=== PATIENT | female | born 1970 | race Caucasian/White ===

== ENCOUNTER 2018-06-28 11:17 | Emergency (ER) | payer SELFPAY ==
[2018-06-28 11:40] VITALS: BP 142/83; BMI 36.6
--- NOTE | 2018-06-28 11:51 | PDOC ---
History of Present Illness - General Chief Complaint: Respiratory Stated Complaint: COLD SYMPTOMS Time Seen by Provider: 06/28/18 11:51 History Source: Patient, Parent(s) Exam Limitations: No Limitations - History of Present Illness Initial Comments: 06/28/18 12:28 48 yo F w/ no sig PMHx comes in c/o 2 days of generalized bodyaches, sore throat , fever/chills, malaise. No known sick contacts, no recent travel, no cough, no runny nose, no sneezing, no abdominal pain, no NVD, (+)Decrease in appetite, no decrease in urination, no rash, no neck pain, no neck stiffness, no burning/ pain on urination Past History - Past Medical History Allergies/Adverse Reactions: Allergies Allergy/AdvReac Type Severity Reaction Status Date / Time No Known Allergies Allergy Verified 06/28/18 11:39 Home Medications: Ambulatory Orders Amoxicillin - [Amoxicillin 500mg Capsule -] 500 mg PO BID 10 Days #20 capsule Ibuprofen [Motrin -] 600 mg PO TID 3 Days #18 tablet 06/28/18 COPD: No - Suicide/Smoking/Psychosocial Hx Smoking History: Never smoked Review of Systems - Review of Systems Able to Perform ROS?: Yes Constitutional: Yes: Chills, Fever, Malaise. No: Night Sweats HEENTM: Yes: Throat Pain. No: Eye Pain, Recent change in vision Respiratory: No: Cough, Shortness of Breath Cardiac (ROS): No: Chest Pain, Palpitations, Chest Tightness ABD/GI: No: Diarrhea, Nausea, Vomiting, Abdominal cramping : No: Dysuria, Hematuria Musculoskeletal: No: Back Pain Integumentary: No: Rash Neurological: No: Headache, Numbness, Dizziness Psychiatric: No: Change in Appetite Endocrine: No: Unexplained Weight Loss *Physical Exam - Vital Signs Last Vital Signs Temp Pulse Resp BP Pulse Ox 102.9 F H 117 H 20 142/83 99 06/28/18 11:36 06/28/18 11:36 06/28/18 11:36 06/28/18 11:36 06/28/18 11:36 - Physical Exam General Appearance: Yes: Nourished. No: Apparent Distress HEENT: positive: MICHAEL, Normal Voice, Pharyngeal Erythema, Tonsillar Exudate, Tonsillar Erythema, Other (no trismus, no uvula edema, no uvula deviation, non kissing tonsils, no signs of [employer] RN). negative: Pale Conjunctivae, Scleral Icterus (R), Scleral Icterus (L), Rhinorrhea, TM Erythema Neck: positive: Supple. negative: Decreased range of motion, Tender midline Respiratory/Chest: positive: Lungs Clear, Normal Breath Sounds. negative: Respiratory Distress, Accessory Muscle Use Cardiovascular: positive: Regular Rhythm, Regular Rate Gastrointestinal/Abdominal: positive: Normal Bowel Sounds, Soft. negative: Tender Musculoskeletal: positive: Normal Inspection. negative: CVA Tenderness, Decreased Range of Motion Extremity: positive: Normal Capillary Refill, Normal Inspection, Normal Range of Motion. negative: Tender, Pedal Edema Integumentary: positive: Normal Color, Dry. negative: Jaundice, Rash Neurologic: positive: Fully Oriented, Alert, Normal Mood/Affect Moderate Sedation - Procedure Monitoring Vital Signs: Procedure Monitoring Vital Signs Temperature 102.9 F H 06/28/18 11:36 Pulse Rate 117 H 06/28/18 11:36 Respiratory Rate 20 06/28/18 11:36 Blood Pressure 142/83 06/28/18 11:36 O2 Sat by Pulse Oximetry (%) 99 06/28/18 11:36 Medical Decision Making - Medical Decision Making 06/28/18 12:32 48 yo F w/ likely strep throat, will also check for the flu. motrin ordered for pain 06/28/18 12:49 (+)strep, will discharge with amoxicillin, motrin, rest and increased hydration. PMD follow up Return for worsening/concerning symptoms Pt verbalizes understanding and agrees with plan *DC/Admit/Observation/Transfer Diagnosis at time of Disposition: Strep pharyngitis - Discharge Dispostion Disposition: HOME Condition at time of disposition: Stable - Referrals - Patient Instructions Printed Discharge Instructions: DI for Strep Throat Additional Instructions: Rest and drink plenty of fluids. FOllow up with your PMD in 2-3 days for reassessment. Return for worsening/concerning symptoms. Take amoxicillin for the full 10 days as prescribed, take motrin as needed for pain and fever - Post Discharge Activity
[2018-06-28] MEDS ORDERED: IBUPROFEN 600 MG TABLET (FP) PO ONE ×2 (12:22→12:24)
[2018-06-28] MEDS ORDERED: ACETAMINOPHEN 325 MG TABLET (FP) PO ONE (12:57)
[2018-06-28] MEDS ORDERED: ACETAMINOPHEN 325 MG TABLET (FP) ONE (12:58)
[2018-06-28 13:01] VITALS: TEMP 102.8
[2018-06-28 13:45] VITALS: PULSE 91
== END 2018-06-28 13:52 | disposition home or self-care (01) ==
LOC: JERFT 11:17
DX: J02.0 Streptococcal pharyngitis (principal); B95.0 Streptococcus, group A, as the cause of diseases classified elsewhere
CPT/HCPCS: 87804; 87880; 99281-25